=== PATIENT | male | born 1950 | race Caucasian/White ===

== ENCOUNTER → 2017-06-22 | Outpatient (CLI) | payer OTHER ==
--- NOTE | 2017-06-22 13:17 | DIAGNOSTIC IMAGING REPORT ---
CAROTID ARTERY ULTRASOUND CLINICAL HISTORY: Carotid arterial disease. History of bilateral carotid endarterectomy. COMPARISON STUDY: Carotid ultrasound October 23, 2015. TECHNIQUE: Real-time, grayscale, and color Doppler sonography of the carotid and vertebral arteries was performed. Images were viewed in the transverse and longitudinal planes. FINDINGS: There is moderate atherosclerotic plaque. Velocity measurements are listed below. COMMON CAROTID PEAK SYSTOLIC VELOCITY (CM/S): RIGHT 121 LEFT 108 ICA PEAK SYSTOLIC VELOCITY (CM/S): RIGHT 175 LEFT 61 The systolic ratios between the internal to common carotid arteries are normal. Antegrade flow is seen in the vertebral arteries. The external carotid arteries are patent. Blood pressure in the right arm measured 172/71. Blood pressure in the left arm measured 180/77. IMPRESSION: 1. Mildly elevated velocity within the proximal right internal carotid artery with a normal systolic ratio. Findings suggest approximate 50% stenosis of the proximal right internal carotid artery. 2. Elevated blood pressure, as detailed above. Electronically signed by: Mehdi Llanos M.D. 06/22/2017 1:15 PM Dictated Date/Time: 06/22/2017 1:08 PM
--- NOTE | 2017-06-28 12:49 | CODING QUERY MEDICAL NECESSITY ---
SUPPORTING DIAGNOSIS NEEDED Radha ESPARZA, A supporting diagnosis is required for the test/procedure performed on this patient in order for us to be reimbursed by the patient's insurance. Please provide a supporting diagnosis for the following test/procedure listed below next to the test name along with your signature. *If there is no additional diagnosis for this patient that would support the following test/procedure please document that below next to the test/procedure. Test(s)/Procedure(s) that require a supporting diagnosis: * ([id number]) (CAROTID DOP) DUPLEX NECK ARTER DIAGNOSIS: DATE OF SERVICE: 06/22/17 Provider Signature: Date: Thank you William Weinberg [place] [employer] [facility] Once completed, please kindly fax back to [phone] For questions please call [phone]
== END | disposition home or self-care (01) ==
LOC: C.ULTR 12:37
PROVIDERS: ATTEND Physician Assistant
DX: I77.9 Disorder of arteries and arterioles, unspecified (principal); R03.0 Elevated blood-pressure reading, without diagnosis of hypertension